=== PATIENT | male | born 1995 | race Caucasian/White ===

== ENCOUNTER 2017-05-23 10:53 | Emergency (ER) | payer BC ==
[2017-05-23 11:00] VITALS: BP 128/64; PULSE 79; RESP 18; TEMP 97.7
--- NOTE | 2017-05-23 11:28 | ED ---
General Adult HPI - General Chief complaint: Chest Pain Stated complaint: left side pain Time Seen by Provider: 05/23/17 11:02 Source: patient, family, RN notes reviewed Mode of arrival: ambulatory Limitations: no limitations - History of Present Illness Initial comments: Chief complaint history of present illness a 20-year-old male who for the past 3 days been having discomfort to his left lateral lower rib cage. He did move from one home to another several days earlier. The pain started rather spontaneously and has not changed in character. Minimal discomfort with palpation of the area but does increase with a deep breath or cough. Denies fever denies any other changes. - Related Data Previous Rx's Medication Instructions Recorded Ibuprofen [Motrin] 600 mg PO Q6HR PRN #20 tab 05/23/17 Allergies Allergy/AdvReac Type Severity Reaction Status Date / Time cat dander Allergy Swelling Verified 05/23/17 11:00 Review of Systems ROS Statement: Those systems with pertinent positive or pertinent negative responses have been documented in the HPI. Review of systems no complaint of visual acuity headache, no change in appetite. No GI/ complaints. His only complaint is that of lateral chest pain with increased deep breaths. No direct injury by did do heavy lifting several days or earlier before the pain started. All systems were reviewed. Past medical problems include asthma. No surgeries. No cancers no family. He has ALLERGIES to cat dander. Denies smoking denies drinking. Occupation office work. But he did do heavy lifting just prior to the pain starting. ROS Other: All systems not noted in ROS Statement are negative. Past Medical History Past Medical History: No Reported History History of Any Multi-Drug Resistant Organisms: None Reported Past Surgical History: No Surgical Hx Reported Past Psychological History: No Psychological Hx Reported Smoking Status: Never smoker Past Alcohol Use History: None Reported Past Drug Use History: None Reported General Exam - General Exam Comments Initial Comments: General: The patient is awake and alert, left lower lateral rib or chest pain with deep breathing. Vital signs temp 97.7 pulse 79 respiratory rate 18 pulse ox 90% room air blood pressure 128/64 Eye: Pupils are equal, round and reactive to light, extra-ocular movements are intact ; there is normal conjunctiva bilaterally. No signs of icterus. Ears, nose, mouth and throat: There are moist mucous membranes and no oral lesions. Neck: The neck is supple, there is no tenderness , no anterior cervical lymphadenopathy, thyroid not enlarged. Cardiovascular: There is a regular rate and rhythm. No murmur, rub or gallop is appreciated. Respiratory: Lungs are clear to auscultation, respirations are non-labored, breath sounds are equal. No wheezes, stridor, rales, or rhonchi. Splinting does not significantly decreased the pain to the left lower lateral rib cage. Deep breathing does increase discomfort. Gastrointestinal: Soft, non-distended, non-tender abdomen without masses or organomegaly noted. There is no rebound or guarding present. No CVA tenderness. Bowel sounds are unremarkable. Back: No back pain, no rashes. Musculoskeletal: Normal appearing and functioning upper and lower extremities. Skin: No rashes noted. No ecchymotic areas Limitations: no limitations Course Vital Signs 05/23/17 10:57 Temperature 97.7 F Pulse Rate 79 Respiratory 18 Rate Blood Pressure 128/64 O2 Sat by Pulse 98 Oximetry Medical Decision Making - Medical Decision Making Medical decision making; Chest x-ray was done and reviewed by radiologist his impression is lungs are clear. No evidence for pneumothorax. No evidence for focal contusion. Mediastinal structures are midline. Evaluation of the ribs fails to demonstrate evidence for displaced rib fracture or secondary sign of rib fracture. As read by Dr. Pereira I discussed with the patient rib contusion and strain pleuritic irritation musculoskeletal discomfort and intercostal muscle discomfort from lifting while moving his home. He'll be placed on ibuprofen 600 mg to be taken every 6 hours for discomfort. Disposition Clinical Impression: Costochondritis, acute Disposition: HOME SELF-CARE Condition: Fair Instructions: Costochondritis (ED) Additional Instructions: Take ibuprofen 600 mg every 6 hours for discomfort. Take it with food. Follow- up family physician if he develops a fever or productive cough. Prescriptions: Ibuprofen [Motrin] 600 mg PO Q6HR PRN #20 tab PRN Reason: Pain Referrals: Nonstaff,Physician [Primary Care Provider] - 1-2 days Time of Disposition: 12:02
--- NOTE | 2017-05-23 11:30 | XR ---
EXAMINATION TYPE: XR ribs LT w pa chest xray DATE OF EXAM: 05/23/2017 COMPARISON: NONE HISTORY: Pain TECHNIQUE: Single view of the chest 4 views of the ribs are submitted. FINDINGS: The lungs are clear. No Evidence for pneumothorax. No evidence for focal contusion. Medi astinal structures are midline. Evaluation of the ribs fails to demonstrate evidence for displaced r ib fracture or secondary sign of rib fracture. IMPRESSION: Negative study
== END 2017-05-23 12:12 | disposition home or self-care (01) ==
LOC: EC 10:53
DX: M94.0 Chondrocostal junction syndrome [Tietze] (principal); Z91.09 Other allergy status, other than to drugs and biological substances
CPT/HCPCS: 99284